=== PATIENT | female | born 1985 | race Caucasian/White ===

== ENCOUNTER 2016-08-05 16:44 | Emergency (ER) | payer OTHER ==
[~2016-08-05] VITALS: Ht 162.6 cm; Wt 70.6 kg
[~2016-08-05 16:44] MED LIST: AMOXICILLIN500 M1 PO; AMOXICILLIN500 MG PO; AMOXICILLIN875 MG PO; AUGMENTIN875 MG PO; BACTRIM,SEPT1 TABLET PO; CLINDAMYCIN HC150 MG PO; COLACE100 MG PO; DOCUSATE SODIU100 MG PO; ENDOCET 5-3251 EACH PO; GLIPIZIDE10 MG PO; GLUCAGON1 MG IM; HUMALOG100 UNIT/1 SC; IBUPROFEN800 MG PO; LANTUS 10100 UNITS/ SQ; LEXAPRO10 MG PO; METFORMIN HCL850 MG PO; MOTRIN800 MG PO; NAPROSYN500 MG PO; NORCO 5/3251 TABLET PO; NORCO 7.5/321 TABLET PO; NOVOLOG 10100 UNITS/ SC; NOVOLOG MI100 UNIT/M PO; NOVOLOG PE100 UNITS/ SC; PERCOCET 5/31 TABLET PO; PRENATAL MULTI1 EAC2 PO; PROAIR HFA8.5 GM IH; PROMETHAZINE HC25 M1 PO; PROVENTIL,200 INHALA IH; TEST STRIPS MC; TRAZODONE HCL50 MG PO; TUMS500 MG PO; ULTRAM50 MG PO; VENTOLIN HFA18 GM IH; VICODIN,LORT1 TABLET PO; ZANTAC75 M1 PO; ZOFRAN ODT4 MG PO; ZOFRAN4 MG PO
[2016-08-05] MEDS ORDERED: BACTRIM,SEPT1 TABLET PO (18:00)
[2016-08-05 18:09] VITALS: BP 134/90
== END 2016-08-05 18:10 | disposition home or self-care (01) ==
LOC: RME 16:44 → EME 16:44 → RME 18:10
DX: L02.811 Cutaneous abscess of head [any part, except face] (principal); E11.9 Type 2 diabetes mellitus without complications
CPT/HCPCS: 99281; 99283

== ENCOUNTER 2016-10-25 19:11 | Emergency (ER) | payer OTHER ==
[~2016-10-25] VITALS: Ht 160 cm; Wt 66.7 kg
[2016-10-25] MEDS ORDERED: BACTROBAN NASAL1 G1 BOTH NARES (20:36)
[2016-10-25] MEDS ORDERED: BACTRIM,SEPT1 TABLET PO (20:36)
[2016-10-25 20:50] VITALS: BP 122/74
== END 2016-10-25 20:51 | disposition home or self-care (01) ==
LOC: EXP 19:11 → EME 19:11 → EXP 20:51
DX: L08.9 Local infection of the skin and subcutaneous tissue, unspecified (principal); B95.8 Unspecified staphylococcus as the cause of diseases classified elsewhere
CPT/HCPCS: 99281; 99283

== ENCOUNTER 2017-03-19 16:57 | Emergency (ER) | payer OTHER ==
[~2017-03-19] VITALS: Ht 162.6 cm; Wt 75.3 kg
[~2017-03-19 16:57] MED LIST changes: +BACTROBAN NASAL1 G1 BOTH NARES
[2017-03-19] MEDS ORDERED: KEFLEX500 MG PO (18:10)
[2017-03-19 18:21] VITALS: BP 133/70
== END 2017-03-19 18:22 | disposition home or self-care (01) ==
LOC: EME 16:57
PROC: 3E0234Z Introduction of Serum, Toxoid and Vaccine into Muscle, Percutaneous Approach (ICD-10-PCS; principal; 2017-03-19)
DX: S61.412A Laceration without foreign body of left hand, initial encounter (principal); W45.8XXA Other foreign body or object entering through skin, initial encounter; Y93.G1 Activity, food preparation and clean up; Z23 Encounter for immunization; E11.9 Type 2 diabetes mellitus without complications; Z79.4 Long term (current) use of insulin; Z87.891 Personal history of nicotine dependence
CPT/HCPCS: 99281; 99283

== ENCOUNTER 2017-12-10 17:35 | Emergency (ER) | payer OTHER ==
[~2017-12-10] VITALS: Ht 162.6 cm; Wt 72.6 kg
[~2017-12-10 17:35] MED LIST changes: +KEFLEX500 MG PO
[2017-12-10] MEDS ORDERED: LEXAPRO10 MG PO (18:52)
[2017-12-10 19:09] VITALS: BP 138/79
== END 2017-12-10 19:14 | disposition home or self-care (01) ==
LOC: EME 17:35
DX: F41.9 Anxiety disorder, unspecified (principal); F41.0 Panic disorder [episodic paroxysmal anxiety]; E11.9 Type 2 diabetes mellitus without complications; Z79.84 Long term (current) use of oral hypoglycemic drugs; F17.200 Nicotine dependence, unspecified, uncomplicated
CPT/HCPCS: 99281; 99283